=== PATIENT | male | born 1995 | race Caucasian/White ===

== ENCOUNTER 2018-01-21 08:14 | Emergency (ER) | payer MEDICAID ==
[2018-01-21 08:29] VITALS: BP 128/76; PULSE 94; RESP 20; TEMP 97.6; O2SAT 98
--- NOTE | 2018-01-21 08:55 | C.PDOC ---
History Of Present Illness 22 y/o male presents to ED with complaints of "penis not working properly". Patient states he is able to have an erection but penis does not work as it used to and reports he started a new medication but is unaware of name. Patient denies dysuria, hematuria, penile discharge or any other complaints at this time. Time Seen by Provider: 01/21/18 08:25 Chief Complaint (Nursing): Male Genitourinary History Per: Patient History/Exam Limitations: no limitations Onset/Duration Of Symptoms: Days Current Symptoms Are (Timing): Still Present Past Medical History Reviewed: Historical Data, Nursing Documentation, Vital Signs Vital Signs: Last Vital Signs Temp 97.6 F 01/21/18 08:21 Pulse 94 H 01/21/18 08:21 Resp 20 01/21/18 08:21 BP 128/76 01/21/18 08:21 Pulse Ox 98 01/21/18 08:57 - Medical History PMH: Anxiety Surgical History: No Surg Hx - [facility] Procedures GROUP PSYCHOTHERAPY (11/06/17) INDIVIDUAL PSYCHOTHERAPY, SUPPORTIVE (11/06/17) MEDICATION MANAGEMENT (11/06/17) Family History: States: No Known Family Hx - Social History Hx Alcohol Use: No Hx Substance Use: No Review Of Systems Except As Marked, All Systems Reviewed And Found Negative. Physical Exam - Physical Exam Appears: Non-toxic, No Acute Distress Skin: Warm, Dry, No Rash Head: Atraumatic, Normacephalic Eye(s): bilateral: Normal Inspection Oral Mucosa: Moist Neck: Normal ROM, Supple Cardiovascular: Rhythm Regular Respiratory: Normal Breath Sounds, No Rales, No Rhonchi, No Wheezing Gastrointestinal/Abdominal: Soft, No Tenderness, No Guarding, No Rebound Male Genital: No Testicular Tenderness, No Testicular Swelling, Circumcised Neurological/Psych: Oriented x3 ED Course And Treatment O2 Sat by Pulse Oximetry: 98 (RA) Pulse Ox Interpretation: Normal Medical Decision Making Medical Decision Making: Assessment: Penile/ Erectile disfunction Disposition - Disposition Disposition: ELOPEMENT - ER ONLY Disposition Time: 09:08 Condition: STABLE Forms: [facility] (Lebanese) - Clinical Impression Clinical Impression: Erectile dysfunction - Scribe Statement The provider has reviewed the documentation as recorded by the Scribkathleen Mane All medical record entries made by the Scribe were at my direction and personally dictated by me. I have reviewed the chart and agree that the record accurately reflects my personal performance of the history, physical exam, medical decision making, and the department course for this patient. I have also personally directed, reviewed, and agree with the discharge instructions and disposition.
[2018-01-21 09:03] LABS: SQUAMOUS EPITHIAL < 1 /hpf (0-5); URINE BILIRUBIN NEGATIVE (NEGATIVE); URINE BLOOD NEGATIVE (NEGATIVE); URINE CLARITY Clear (Clear); URINE COLOR Yellow (YELLOW); URINE GLUCOSE (UA) NORMAL (Normal); URINE LEUKOCYTE ESTERASE NEG Leu/uL (Negative); URINE PROTEIN NEGATIVE (NEGATIVE); URINE UROBILINOGEN NORMAL mg/dL (0.2-1.0)
== END 2018-01-21 09:10 | disposition left against medical advice (07) ==
LOC: C.ER 08:14
DX: N52.9 Male erectile dysfunction, unspecified (principal)

== ENCOUNTER 2018-01-21 10:55 | Emergency (ER) | payer MEDICAID ==
--- NOTE | 2018-01-21 11:19 | C.PDOC ---
History Of Present Illness 22 yr old male brought in accompanied by PD, presents to the ER for alleged homicidal threats. Patient was seen earlier today for erectile dysfunction and eloped. According to PD, family states the patient came home and made homicidal threats stating he was wanted to kill people at [employer] because the coupons are fake. At present time, patient is calm and cooperative. Denies HI, SI, or any other phycial complaints. Time Seen by Provider: 01/21/18 11:02 Chief Complaint (Nursing): Psychiatric Evaluation History Per: Patient, Other (PD) History/Exam Limitations: no limitations Suicide/Self Injury Attempted (Context): None Past Medical History Reviewed: Historical Data, Nursing Documentation, Vital Signs Vital Signs: Last Vital Signs Temp 98.5 F 01/21/18 16:30 Pulse 80 01/21/18 16:30 Resp 20 01/21/18 16:30 BP 102/58 L 01/21/18 11:07 Pulse Ox 99 01/21/18 18:18 - Medical History PMH: Anxiety - [facility] Procedures GROUP PSYCHOTHERAPY (11/06/17) INDIVIDUAL PSYCHOTHERAPY, SUPPORTIVE (11/06/17) MEDICATION MANAGEMENT (11/06/17) Family History: States: No Known Family Hx - Social History Hx Alcohol Use: No Hx Substance Use: No Review Of Systems Except As Marked, All Systems Reviewed And Found Negative. Psych: Positive for: Other (alleged homicidal threats). Negative for: Suicidal ideation Physical Exam - Physical Exam Appears: Non-toxic, No Acute Distress Skin: Warm, Dry Head: Atraumatic Eye(s): bilateral: Normal Inspection Oral Mucosa: Moist Neck: Normal, Normal ROM Chest: Symmetrical Cardiovascular: Rhythm Regular Respiratory: Normal Breath Sounds Gastrointestinal/Abdominal: Normal Exam, Bowel Sounds Back: Normal Inspection Extremity: Bilateral: Atraumatic Neurological/Psych: Oriented x3, Normal Speech ED Course And Treatment - Laboratory Results Result Diagrams: 01/21/18 12:07 01/21/18 12:07 O2 Sat by Pulse Oximetry: 99 (RA) Pulse Ox Interpretation: Normal Medical Decision Making Medical Decision Making: IMPRESSION: Alleged homicidal threats NOTE: * Patient was seen and evaluated by crisis security team lead * 1525 - Patient is medically clear, crisis security team lead Shania made aware * 1630 - Patient is pending evaluation by screeners Disposition - Disposition Disposition Time: 19:00 Condition: STABLE Forms: [facility] (Bulgarian) - Clinical Impression Clinical Impression: Schizophrenia - Scribe Statement The provider has reviewed the documentation as recorded by the Dorinaibe Ngoc lE Provider Attestation: All medical record entries made by the Scribe were at my direction and personally dictated by me. I have reviewed the chart and agree that the record accurately reflects my personal performance of the history, physical exam, medical decision making, and the department course for this patient. I have also personally directed, reviewed, and agree with the discharge instructions and disposition. Physician Patient Turnover Patient Signed Over To: Manda Sotomayor Handoff Comments: pending crisis evaluation and disposition
[2018-01-21 12:16] LABS: BASO % 0.6 % (0.0-2.0); EOS # 0.1 K/uL (0.0-0.7); EOS % 0.8 % (0.0-4.0); HEMOGLOBIN 14.2 g/dL (12.0-18.0); LYMPH # 1.6 K/uL (1.0-4.3); LYMPH % 18.5 % (20.0-40.0); MEAN CELL VOLUME 91.6 fL (80.0-94.0); MEAN CORPUSCULAR HEMOGLOBIN 32.3 pg (27.0-31.0); MEAN CORPUSCULAR HGB CONC 35.3 g/dL (33.0-37.0); MEAN PLATELET VOLUME 8.7 fL (7.2-11.7); MONO # 0.5 K/uL (0.0-0.8); NEUT # 6.4 K/uL (1.8-7.0); NEUT % 74.1 % (50.0-75.0); RBC 4.4 Mil/uL (4.40-5.90); RED CELL DISTRIBUTION WIDTH 12.6 % (11.5-14.5); WHITE BLOOD COUNT 8.7 K/uL (4.8-10.8)
[2018-01-21 12:27] LABS: ALB/GLOB RATIO 1.5 (1.0-2.1); ALBUMIN 4.6 g/dL (3.5-5.0); ALT/SGPT 31 U/L (21-72); AST/SGOT 21 U/L (17-59); BLOOD UREA NITROGEN 13 mg/dL (9-20); CALCIUM 8.9 mg/dl (8.6-10.4); GFR AFRICAN-AMERICAN > 60; GFR NON-AFRICAN AMERICAN > 60
[2018-01-21 14:21] LABS: URINE BACTERIA RARE (<OCC); URINE BILIRUBIN NEGATIVE (NEGATIVE); URINE BLOOD NEGATIVE (NEGATIVE); URINE CLARITY Hazy (Clear); URINE COLOR Yellow (YELLOW); URINE GLUCOSE (UA) NORMAL (Normal); URINE LEUKOCYTE ESTERASE NEG Leu/uL (Negative); URINE PROTEIN 1+ mg/dL (NEGATIVE)
[2018-01-21 15:17] LABS: BARBITURATES, UR NEGATIVE (NEGATIVE); BENZODIAZEPINES, UR NEGATIVE (NEGATIVE); OPIATES, UR NEGATIVE (NEGATIVE); PHENCYCLIDINE, UR NEGATIVE (NEGATIVE)
[2018-01-22] MEDS: Divalproex 250 mg DR Tab PO SCH ×2 (12:05→17:44)
[2018-01-22 17:48] VITALS: O2SAT 99
[2018-01-22 23:02] VITALS: TEMP 98.6
[2018-01-22 23:49] VITALS: BP 101/59; PULSE 58; RESP 16
== END 2018-01-22 23:49 | disposition short-term general hospital (02) ==
LOC: C.ER 10:55
DX: F20.9 Schizophrenia, unspecified (principal)
CPT/HCPCS: 80053; 80320; 80324; 80345; 80346; 80349; 80353; 80358; 80361; 81001; 83992; 85025; 96372; 99285; J1630; J2060